=== PATIENT | male | born 1985 | race Caucasian/White ===

== ENCOUNTER 2021-05-08 20:56 | Emergency (ER) | payer MEDICARE ==
[2021-05-08 21:03] VITALS: BP 175/89; PULSE 86; RESP 18; TEMP 98
[2021-05-08] MEDS ORDERED: FAMOTIDINE 20 MG/2 ML VIAL IV STA (21:57)
[2021-05-08] MEDS ORDERED: SODIUM CHLORIDE 0.9% 1,000 ML IV STA (21:57)
[2021-05-08] MEDS ORDERED: methylPREDNISolone SOD SUCCI 125 MG/2 ML VIAL IV STA (21:57)
[2021-05-08] MEDS ORDERED: diphenhydrAMINE 50 MG CAP PO STA (21:57)
--- NOTE | 2021-05-08 22:27 | ED ---
General Adult HPI - General Chief complaint: Skin/Abscess/Foreign Body Stated complaint: Foreign object left ear Time Seen by Provider: 05/08/21 21:05 Source: patient, RN notes reviewed Mode of arrival: ambulatory Limitations: no limitations - History of Present Illness Initial comments: Patient is a 36-year-old male that presents to emergency room complaining of left ear pain. He notes that he was cleaning his ear and thinks he might on a Q-tip stuck in it. Patient was otherwise a well-appearing 36-year-old male in no apparent distress or pain. He denied any chest pain shortness breath headache nausea vomiting diarrhea constipation fever fatigue chills. He did note that he does have decreased hearing in the ear. - Related Data Previous Rx's Medication Instructions Recorded Amoxicillin 875 mg PO Q12HR #20 tablet 05/08/21 predniSONE 50 mg PO DAILY #5 tab 05/08/21 Allergies Allergy/AdvReac Type Severity Reaction Status Date / Time ketorolac [From Toradol] Allergy Rash/Hives Verified 05/08/21 21:03 pine nut Allergy Wheezing Verified 05/08/21 21:03 Review of Systems ROS Statement: Those systems with pertinent positive or pertinent negative responses have been documented in the HPI. ROS Other: All systems not noted in ROS Statement are negative. Past Medical History Past Medical History: No Reported History History of Any Multi-Drug Resistant Organisms: None Reported Past Surgical History: Tonsillectomy Past Psychological History: Anxiety, Depression Smoking Status: Current every day smoker Past Alcohol Use History: None Reported Past Drug Use History: Marijuana General Exam Limitations: no limitations General appearance: alert, in no apparent distress Head exam: Present: atraumatic, normocephalic, normal inspection Eye exam: Present: normal appearance, PERRL, EOMI. Absent: scleral icterus, conjunctival injection, periorbital swelling ENT exam: Present: normal exam Expanded TM/Canal exam: Cerumen Impaction: Right TM Neck exam: Present: normal inspection Respiratory exam: Present: normal lung sounds bilaterally. Absent: respiratory distress, wheezes, rales, rhonchi, stridor Cardiovascular Exam: Present: regular rate, normal rhythm, normal heart sounds. Absent: systolic murmur, diastolic murmur, rubs, gallop, clicks Extremities exam: Present: normal inspection, full ROM, normal capillary refill. Absent: tenderness, pedal edema, joint swelling, calf tenderness Neurological exam: Present: alert, oriented X3 Psychiatric exam: Present: normal affect, normal mood Skin exam: Present: warm, dry, intact, normal color. Absent: rash Course Vital Signs 05/08/21 20:58 Temperature 98.0 F Pulse Rate 86 Respiratory 18 Rate Blood Pressure 175/89 O2 Sat by Pulse 98 Oximetry Medical Decision Making - Medical Decision Making 36-year-old male complaining of left ear pain with possible foreign body. Upon inspection was noted there was a large amount of earwax inside left ear canal. Extremities full was used to try to remove some of it. Patient is having a hard time sitting still during his due to irritation. Hygiene approximate was inserted here in flushed with moderate amounts of wax removed. Upon inspection patient's external auditory canal was inflamed and minimally swollen. Patient was sent antibiotics and steroids to pharmacy. Case discussed with Dr. Tovar, patient discharge home. Disposition Clinical Impression: Impacted cerumen of left ear, Otitis media Disposition: HOME SELF-CARE Condition: Stable Instructions (If sedation given, give patient instructions): Cerumen Impaction (ED) Additional Instructions: Please return to the Emergency Department if symptoms worsen or any other concerns. Follow-up with primary care in the next 1-2 days. Take medications as prescribed. Prescriptions: Amoxicillin 875 mg PO Q12HR #20 tablet predniSONE 50 mg PO DAILY #5 tab Is patient prescribed a controlled substance at d/c from ED?: No Referrals: None,Stated [Primary Care Provider] - 1-2 days Time of Disposition: 22:27
== END 2021-05-08 22:33 | disposition home or self-care (01) ==
LOC: EC 20:56
DX: H61.22 Impacted cerumen, left ear (principal); H66.92 Otitis media, unspecified, left ear; F41.9 Anxiety disorder, unspecified; F32.9 Major depressive disorder, single episode, unspecified; F17.200 Nicotine dependence, unspecified, uncomplicated; F12.90 Cannabis use, unspecified, uncomplicated; Z88.6 Allergy status to analgesic agent; Z90.89 Acquired absence of other organs
CPT/HCPCS: 99282